=== PATIENT | female | born 1985 | race Caucasian/White ===

== ENCOUNTER 2022-10-18 22:49 | Emergency (ER) | payer BC ==
[~2022-10-18] VITALS: Ht 160 cm; Wt 90.7 kg
--- NOTE | 2022-10-18 23:04 | NUR ---
Patient arrived to ED 7 for c/o tampon she believes is stuck inside since today. No active distress noted. Alert and oriented x4. Respiration even and unlabored. No c/o pain.
[2022-10-18 23:33] VITALS: BP_SYST 147
--- NOTE | 2022-10-18 23:41 | NUR ---
PATIENT PRESENTS WITH ABDOMEN PAIN AND HEADACHE X3 DAYS, BELIEVES SHE HAS A TAMPON STUCK IN VAGINA, VITALS ARE STABLE
--- NOTE | 2022-10-19 00:38 | NUR ---
REPORT GIVEN TO TY BLAKE TPLACED IN BED 7
[2022-10-19 02:23] LABS: BILIRUBIN,URINE NEGATIVE (NEGATIVE); BLOOD, URINE 1+ (NEGATIVE); CLARITY/URINE SL CLOUDY (CLEAR); COLOR,URINE YELLOW (YELLOW); GLUCOSE,URINE NEGATIVE (NEGATIVE); KETONES,URINE NEGATIVE (NEGATIVE); LEUKOCYTE ESTERASE ,URINE NEGATIVE (NEGATIVE); NITRITE, URINE NEGATIVE (NEGATIVE); PROTEIN URINE NEGATIVE (NEGATIVE); UROBILINOGEN,URINE 0.2 (0.2-1.0)
--- NOTE | 2022-10-19 02:29 | NUR ---
MD AT BEDSIDE FOR VAGINAL EXAM, TAMPON REMOVED FROM PATIENT, TOLERATED PROCEDURE WELL
[2022-10-19 02:56] LABS: BACTERIA,URINE FEW /HPF (None Seen); WBC,URINE 0-3 /HPF (0-3)
[2022-10-19 03:04] VITALS: BP_SYST 134
--- NOTE | 2022-10-19 03:05 | NUR ---
Patient given written and verbal discharge instructions and verbalizes understanding. ER MD discussed with patient the results and treatment provided. Patient in stable condition. ID arm band removed. Patient educated on VAGINAL FOREIGN BODY and to follow up with PMD. Pain Scale 0. Opportunity for questions provided and answered. Medication side effect fact sheet provided.
== END 2022-10-19 03:04 | disposition home or self-care (01) ==
LOC: SED 22:49
DX: T19.2XXA Foreign body in vulva and vagina, initial encounter (principal); Z88.6 Allergy status to analgesic agent; W45.8XXA Other foreign body or object entering through skin, initial encounter; Y93.89 Activity, other specified; Y92.89 Other specified places as the place of occurrence of the external cause; Y99.8 Other external cause status
CPT/HCPCS: 81000; 99284